=== PATIENT | male | born 1955 ===

== ENCOUNTER 2024-10-06 15:43 | Inpatient (IN) | payer OTHER, SELFPAY ==
[2024-10-06] VITALS (15 sets, daily range): BP systolic 113–151; BP diastolic 68–102; BMI 27.4
--- NOTE | 2024-10-06 10:29 | W.PN.CARDCBS ---
Today's Communication / Plan
-
[facility] today
echo in AM
Impression / Plan
-
This is the H&P summary.
Full H&P scanned into chart.
PCP: David Amato DO
CDY: Seen by Amadou Brady, at [facility]/will follow at [facility] at d/c
68 y/o, PMH sig HTN (no meds with possible white coat HTN), statin intolerant HLD, uncontrolled DM with last HgbA1C 11.7% in July, non smoker, social ETOH. Pt does not like taking meds and has been non compliant in the past.
Presented to [facility] ER 10/04 with 2 weeks intermittent exertional substernal chest discomfort, tightness without radiation, now waking him at night with longer duration. All episodes resolved on their own after a few minutes. CTA chest neg for
PE/AA/dissection but incidental finding of small atherosclerotic ulcer in R OLIVIA. HS Troponin peak 310. BP on arrival 200/100s on arrival, now improved to 130s/70s with SL NTG. Started on aspirin, currently chest pain free. Transferred for [facility] today.
IMPRESSION:
NSTEMI
Hypertensive urgency
HTN, possible white coat HTN
Statin intolerant HLD
Uncontrolled DM
Medication non compliant
R OLIVIA atherosclerotic ulcer (on CT 10/04/24)
PLAN:
NSTEMI-
this is a threat to life
transferred for [facility] today
HS trop peak at 310
started on aspirin 81- unclear if he got load- will give additional 243mg now
BB held d/t some low HR 50s but mostly nocturnal
would start low dose BB, acei- monitor HR/BP
echo in AM
cardiac rehab consult
pt prefers followup at [facility] at d/c
Hypertensive urgency/HTN
200/100s on arrival- ranging now betwwwn
possible white coat HTN
PCP aware and managing as OP
would start acei- creat stable
monitor trends
HLD- statin intolerant
reports myalgia and joint pains in the past
he was agreeable to trying atorvastatin 40 at [facility]- will monitor symptoms
check lipid profile in AM
Uncontrolled DM
only taking glipizide
recent HgbA1C 11.7 in July 2024
repeat and consider DM PANTOGRAPH WATCHER consult/education
likely will need to adjust oral meds/insulin therapy
Progress Note - Bottom Painter
Subjective
Date of Service: October 06, 2024
[2024-10-06 15:28] LABS: ACT-LR - POC 242 Seconds (116-155)
[2024-10-06 15:38] LABS: ACT-LR - POC 324 Seconds (116-155)
--- NOTE | 2024-10-06 15:48 | ITS.CL.ANGIO ---
Telecommunications Linesworker - Angioplasty
Angioplasty
Procedure Report:
LEFT HEART CATHETERIZATION
Date of Procedure: October 06, 2024
Procedures performed:
1: Coronary angiography
2: Left ventriculography
3: Percutaneous coronary intervention of the left circumflex artery with placement of a 2.75 x 18 mm [place] drug-eluting stent
Primary Care Physician: Dr. Karen Barrientos
Primary Customs Opener Verifier Packer: Dr. Kar Orr
INDICATION: The patient is a 68-year-old man with a past medical history significant for poorly controlled diabetes who presents with a non-STEMI to [facility] and was transferred for cardiac catheterization. He has been chest
pain-free. EKGs are normal. Echocardiography was not performed.
ACCESS: The patient was prepped and draped in usual sterile fashion. A 6 [place] sheath was placed in the right radial artery using the Seldinger over the wire technique.
HEMODYNAMIC FINDINGS (mmHg):
LV(s/d,EDP): 130/9, 14
Ao(s/d,m): 130/77, 101
ANGIOGRAPHIC FINDINGS:
Single-plane Left Ventriculography in LEVI Projection: Hyperdynamic LV function with no clear regional wall motion abnormality in LEVI. Visually estimated ejection fraction 75%. No significant mitral regurgitation.
Coronary Angiography:
Dominance: Right
Left Main: Normal
Left Anterior Descending: The LAD is a medium caliber vessel that appears normal proximally. There is a long area of mid myocardial bridging. This is followed by a smooth 60% mid to distal stenosis that also may have some element of bridging. The
distal vessel is angiographically normal with normal distal flow.
Ramus intermedius: There is a large caliber ramus intermedius branch which bifurcates into 2 major distal vessels. There is mild diffuse bifurcation disease that is nonobstructive. Distal vessels have normal flow.
Left Circumflex: The left circumflex is a medium caliber vessel that gives rise to 1 major bifurcating OM. There is a hazy mid 90% stenosis with normal distal flow.
Right Coronary: The right coronary artery is a large-caliber dominant vessel that gives rise to a medium caliber posterior descending artery and slightly larger posterior left ventricular branch system. These vessels have mild nonobstructive
luminal irregularities with no focal obstructive disease and normal flow in all distal vessels.
Percutaneous Coronary Intervention (PCI): In light of the above angiographic findings, I elected to proceed with a PCI of the culprit circumflex. The patient was pretreated with aspirin. Unfractionated heparin was given. A 6 [place] XB 3.5 guiding
catheter was used to engage the left main. A Hi-Torque floppy wire was successfully used to cross the lesion. A double bolus of Integrilin was given as the lesion appeared acute and hazy with some amount of thrombus. Predilation was performed
with a 2.0 x 15 mm balloon. Next a 2.75 x 18 mm Tip stent was deployed at 12 malik. The stent was postdilated with a 2.75 mm diameter noncompliant balloon inflated to 18 malik. This was done in a distal to proximal fashion taking care to stay within
the stented margins. A loading dose of clopidogrel 600 mg was given on the table at the end of the procedure.
FINAL RESULT: 0% in-stent residual stenosis with an outstanding angiographic result and FAMILIA-3 flow in all vessels.
Fluoroscopy Time (min): 8.9
Radiation Dose (mGy): 776
DAP (Gy.cm2): 61
Closure device: None. A TR band was applied for hemostasis at the right wrist.
Complications: None.
ASSESSMENT:
1: Successful PCI of the culprit circumflex with placement of drug-eluting stent as described above.
2: Residual single-vessel coronary artery disease with mid to distal LAD stenosis as described above. I suspect this is not flow-limiting and we will plan to follow clinically on medical therapy. Consider stress testing in the future to
definitively rule out LAD territory ischemia in this poorly controlled diabetic.
3: Preserved LV systolic function with no significant mitral regurgitation.
CONCLUSIONS and RECOMMENDATIONS:
1: Routine post non-STEMI and post drug-eluting stent medical therapy and monitoring. The patient needs dual antiplatelet therapy with aspirin and Plavix uninterrupted for a year and aspirin 81 mg daily indefinitely.
2: Consult hospitalist for aggressive control of diabetes. Hemoglobin A1c was over 10 on admission. Will discuss with the patient's primary care physician.
Carlos Orr M.D.
Copy to: Dr. Karen Barrientos
[2024-10-06] MEDS: LOW STRENGTH ASPIRIN 243 MG PO (16:37)
[2024-10-06 17:01] LABS: Glucose - Point of Care 145 mg/dl (70-99)
[2024-10-06] MEDS: NOVOLOG FLEXPEN-MODERATE RESISTANCE SC (17:06)
[2024-10-06] MEDS: COZAAR 50 MG PO (17:14)
[2024-10-06] MEDS: LIPITOR 80 MG PO (17:15)
[2024-10-06 22:11] LABS: Glucose - Point of Care 210 mg/dl (70-99)
--- NOTE | 2024-10-06 23:18 | PTCARENOTE ---
Received pt @ change of shift. AAOx3, VSS-- NSR on monitor. R-band successfully removed-- see worklist for details. Right radial site clean, dry, and intact. No swelling, ecchymosis, and is soft to touch. Discussed plan of care for evening. Pt
verbalizes understanding. Call meléndez within reach.
[2024-10-07 02:04] VITALS: BP 129/69
[2024-10-07 02:40] LABS: Hematocrit 39.8 % (39.0-52.0); Hemoglobin 13.8 g/dL (13.0-18.0); Mean Corp Hgb Conc. 34.7 g/dL (33.0-37.0); Mean Corpuscular Hgb 30.3 pg (27.0-31.0); Mean Corpuscular Volume 87.3 fL (80.0-94.0); Mean Platelet Volume 9.2 fL (7.4-10.4); Platelet Count 245 10^3/uL (130-400); Red Blood Cell Count 4.56 10^6/uL (4.70-6.10); Red Cell Dist. Width 12.4 % (11.5-14.5); White Blood Cell Count 6.1 10^3/uL (4.8-10.8)
[2024-10-07 03:12] LABS: Blood Urea Nitrogen 20 mg/dl (9-20); Calcium 9.1 mg/dl (8.4-10.2); Carbon Dioxide 25 mmol/L (22-30); Chloride 107 mmol/L (98-107); Estimated Creatinine Clearance 72 ml/min; Glucose 184 mg/dl (70-99); HDL Cholesterol 34 mg/dl; LDL Cholesterol, Calculated 93 mg/dl; Potassium 4.4 mmol/L (3.5-5.1); Sodium 138 mmol/L (135-145); Total Cholesterol 149 mg/dl (50-199); Triglyceride 112 mg/dl (10-149); Very Low Density Lipoprotein 22 mg/dl (0-30); eGFR > 60.00
[2024-10-07 07:34] VITALS: BP 151/68
--- NOTE | 2024-10-07 07:39 | PN.DE.MGMTRT ---
Insulin Management
- -
10/07/2024 Diabetes Management Consult
Patient transferred from [facility] 10/05. Presented to [facility] with CP/tightness without radiation and uncontrolled HTN. PMH, HTN, HLD, diabetes. Prior to admission was taking glipizide 10 mg daily. A1C on admission 11.7%, cr .9, eGFR > 60.
s/p Cardiac Cath 10/06 with stent.
Patient is awake alert and oriented able to discuss diabetes care. States he has had diabetes approximately 10+ years, did not test consistently but has a working glucose monitor.
Currently ordered corrective insulin. Glucose range 145 to 210. Will start Farxiga 10 mg now and increase glipizide to 10 mg BID. Discussed importance of glucose control, patient states he loves pasta and bread. Recommended he reduce serving
sizes. Explained the action and benefit of Farxiga and when it should be taken. Also discussed need to increase glipizide to BID, he verbalized understanding. Requested he test glucose BID in pattern provided and call me to report blood
sugars, he has agreed to do so. Recommended he make an appointment with his primary provider for follow up. He states he leaves for a cruise on but will make the appointment.
Discussed with nurse.
Will follow
Diabetes History
- -
Type of Diabetes: 2
Pre-Admission Diabetes Regimen
10/07/24
02:15
Creatinine 0.9
Insulin Pump Settings
IP Diabetes Regimen
10/06/24 10/06/24 10/07/24
16:59 22:10 02:15
Glucose 184 H
POC Glucose 145 H 210 H
Patient Education
[2024-10-07 07:44] LABS: Glucose - Point of Care 175 mg/dl (70-99)
[2024-10-07] MEDS: GLUCOTROL 10 MG PO (07:57)
[2024-10-07] MEDS: FARXIGA 10 MG PO (07:57)
[2024-10-07] MEDS: PLAVIX 75 MG PO (07:57)
[2024-10-07] MEDS: COZAAR 50 MG PO (07:58)
[2024-10-07] MEDS: LOW STRENGTH ASPIRIN 81 MG PO (07:58)
[2024-10-07] MEDS: NOVOLOG FLEXPEN-MODERATE RESISTANCE 1 UNITS SC (08:21)
--- NOTE | 2024-10-07 08:58 | W.PN.CARDCBS ---
Addendum entered and electronically signed by Akil Downey MD 10/07/24 11:01:
I saw and examined the patient.
The Senior Energy Trader's note was reviewed and I agree with the note.
Comment:
GEN: No distress, awake, Ox3
HEENT: supple, anicteric, mmm
LUNGS: CTA, no wheezes/rales
CV: Reg, S1/S2, 1/6 syst LSB, no gallop
ABD: soft, BS+, NT/ND
EXT: No edema
NEURO: Gross non-focal
SKIN: No rash
Plan:
Overall doing well status post left circumflex PCI. He does have residual 60% LAD. We discussed this.
Check echocardiogram today.
Continue aspirin, Plavix, Atorvastatin 80 mg, losartan and Farxiga.,
Holding off on beta-marta due to bradycardia.
Hopeful for discharge today.
We discussed the importance of sugar control he will be seeing the nurse practitioner today to further discuss this. Hemoglobin A1c above 10
Original Note:
Today's Communication / Plan
-
Echo today
DM BANK CONSULTANT consult
likely d/c later today
Impression / Plan
-
PCP: David Amato DO
CDY: Seen by Amadou Brady DO at [facility]/will follow [facility] at d/c
68 y/o, PMH sig HTN (no meds with possible white coat HTN), statin intolerant HLD, uncontrolled DM with last HgbA1C 11.7% in July, non smoker, social ETOH. Pt does not like taking meds and has been non compliant in the past.
Presented to [facility] ER 10/04 with 2 weeks intermittent exertional substernal chest discomfort, tightness without radiation, now waking him at night with longer duration. All episodes resolved on their own after a few minutes. CTA chest neg for
PE/AA/dissection but incidental finding of small atherosclerotic ulcer in R OLIVIA. HS Troponin peak 310. BP on arrival 200/100s on arrival, now improved to 130s/70s with SL NTG. Started on aspirin, currently chest pain free.
LHC 6/2- hazy mid 90% LCx- s/p angioplasty/YONG x1
LVGram- Hyperdynamic LV function, EF 75%, no clear WMA, no sig MR
IMPRESSION:
NSTEMI
s/p LCx PCI
Residual CAD- 60% mid-distal LAD, medical management
Hypertensive urgency
HTN, possible white coat HTN
Statin intolerant HLD
Uncontrolled DM
Medication non compliant
R OLIVIA atherosclerotic ulcer (on CT 10/04/24)
PLAN:
NSTEMI-
this is a threat to life
s/p LCx PCI w/LAD residual CAD
HS trop peak at 310
Tele- NSR 60-70s, no vt/arrhythmia
DAPT w/asa, plavix
Holding off on BB d/t some bradycardia, preserved EF on LVGram
prob could tolerate low dose metoprolol-
new start losartan 50mg w/good BP reduction
would keep all meds to daily dosing to help with compliance
echo today
cardiac rehab consult
pt prefers followup at [facility] at d/c
likely d/c later today after consulte/echo
Hypertensive urgency/HTN
200/100s on arrival
possible white coat HTN?
PCP aware and managing as OP
tolerating losartan 50mg with good BP reduction noted already
HLD- statin intolerant
reports myalgia and joint pains in the past
he was agreeable to trying atorvastatin 40 at [facility]- will monitor symptoms
lipid profile noted
Uncontrolled DM
only taking glipizide
recent HgbA1C 11.7 in July 2024- pending this morning
DM BANK CONSULTANT consult/education this morning
likely will need to adjust oral meds/insulin therapy
Progress Note - Physical Education Department Chair
Subjective
Date of Service: October 07, 2024
Denies cp/palps/dyspnea
oob ambualting
radial cath site without pain
Objective
Labs:
10/07/24 02:15
10/07/24 02:15
Labs
Hgb 13.8 g/dL (13.0-18.0) 10/07/24 02:15
Hct 39.8 % (39.0-52.0) 10/07/24 02:15
Plt Count 245 10^3/uL (130-400) 10/07/24 02:15
Sodium 138 mmol/L (135-145) 10/07/24 02:15
Potassium 4.4 mmol/L (3.5-5.1) 10/07/24 02:15
BUN 20 mg/dl (9-20) 10/07/24 02:15
Creatinine 0.9 mg/dL (0.7-1.3) 10/07/24 02:15
Glucose 184 mg/dl (70-99) H 10/07/24 02:15
Vital Signs and I&O:
Vital Signs
Temp Pulse Resp BP Pulse Ox
98 F 71 18 151/68 97
10/07/24 07:35 10/07/24 07:34 10/07/24 07:35 10/07/24 07:34 10/07/24 07:35
Vital Signs
Temp Pulse Resp BP Pulse Ox
98 F 71 18 151/68 97
10/07/24 07:35 10/07/24 07:34 10/07/24 07:35 10/07/24 07:34 10/07/24 07:35
Physical Exam
Physical Exam
AAOx3, MAEE 5
RRR S1 S2 no murmurs
CTA bilat, non labored
soft abd, + bs
right radial cath site without ht/bleeding, non tender
bilat extremities w/palpable distal pulses, no edema
[2024-10-07 09:27] LABS: Glycohemoglobin (HgbA1c) 10.1 % (4.0-5.6)
--- NOTE | 2024-10-07 10:23 | CM ---
Addendum entered by Mary Romero 10/07/24 10:49:
Reviewed co-pay for Farxiga with him. He is agreeable to the co-pay.
Original Note:
Reviewed chart. Met with Joana Marinelli to review discharge plans. He states prior to admission he resides with his spouse in a two story home with two steps to enter. He states he has a full flight of steps to get to bedroom/full bathroom. He states
he has a powder room on the first floor. He states prior to admission he was independent with ambulation and adls. He states he does not have any DME in the home. He states he has a prescription plan. Telephone call to [employer], ([phone]) to
check his co-pay for Farxiga 10 mg p.o. His co-pay would be $132.39 a month or $368.95 for three months. He does not have a deductible, so he will pay that burleson until he gets to his maximum out of pocket of $2000.00 then he would have a zero
co-pay. Placed the month free coupon in his red discharge folder. Medical work up in progress. The discharge plan is to return home with his spouse when medically stable.
[2024-10-07 10:58] VITALS: BP 124/89
[2024-10-07 11:44] LABS: Glucose - Point of Care 134 mg/dl (70-99)
[2024-10-07] MEDS: NOVOLOG FLEXPEN-MODERATE RESISTANCE SC (11:46)
--- NOTE | 2024-10-07 14:20 | PTCARENOTE ---
Pt is very pleasant. No complaints of chest pain or sob. Ambulatory around unit. Given extensive teaching on ACS and diabetes management. Is concerned about diet restrictions but is motivated to try. Will go home today when discharge orders in.
[2024-10-07 15:16] VITALS: BP 134/64
--- NOTE | 2024-10-07 15:40 | W.DS.TRANS ---
DC Summary - Director Global Intelligence
-
Discharge Instructions:
Discharge Diagnosis/Procedures NSTEMI, s/p angioplasty and stent to Left
Circumflex artery
Diet Low Cholesterol,Diabetic, Carb Controlled
Additional Activity DO NOT MOW THE LAWN!!!!! Wait until after
vacation.
Driving Restrictions No driving for 24 hours
Other Services Cardiac Rehab
Instructions:
Stand-Alone Forms: DC Instructions- Cath/EP Lab
Return to Work
Changes to Home Medications: Yes
Discharge Medications:
DC Medications w/original date entered in [facility]
aspirin 81 mg chewable tablet 81 mg PO DAILY #0 tabs 10/07/24
atorvastatin 80 mg tablet 80 mg PO QPM #30 tabs 10/07/24
clopidogrel 75 mg tablet 75 mg PO DAILY #30 tabs 10/07/24
dapagliflozin propanediol 10 mg tablet 10 mg PO DAILY #30 tabs 10/07/24
glipizide 10 mg tablet 10 mg PO BID #60 tabs 10/07/24
losartan 50 mg tablet 50 mg PO DAILY #30 tabs 10/07/24
nitroglycerin 0.4 mg sublingual tablet 0.4 mg sublingual [id number] PRN chest pain #25 tabs 10/07/24
Home Medication Changes
ALL ARE NEW
DOSE INCREASE: glipizide
Pending Results: No
== END 2024-10-07 15:21 | disposition home or self-care (01) | DRG 322 ==
LOC: IVU 15:43
PROVIDERS: Nurse Practitioner; ADMITTING PHYSICIAN Internal Medicine Interventional Cardiology; ATTENDING PHYSICIAN Internal Medicine Interventional Cardiology; FAMILY PHYSICIAN Family Medicine
PROC: B2111ZZ Fluoroscopy of Multiple Coronary Arteries using Low Osmolar Contrast (ICD-10-PCS; 2024-10-06)
PROC: 4A023N7 Measurement of Cardiac Sampling and Pressure, Left Heart, Percutaneous Approach (ICD-10-PCS; 2024-10-06)
PROC: 027034Z Dilation of Coronary Artery, One Artery with Drug-eluting Intraluminal Device, Percutaneous Approach (ICD-10-PCS; 2024-10-06)
DX: I21.4 Non-ST elevation (NSTEMI) myocardial infarction (principal); I25.10 Atherosclerotic heart disease of native coronary artery without angina pectoris; I10 Essential (primary) hypertension; E78.5 Hyperlipidemia, unspecified; E11.65 Type 2 diabetes mellitus with hyperglycemia; I16.0 Hypertensive urgency; I70.8 Atherosclerosis of other arteries; Z91.148 Patient's other noncompliance with medication regimen for other reason
CPT/HCPCS: 80048; 80061; 82962; 83036; 85027; 85347; 93005; 93306; 93458; C1725; C1769; C1874; C1887; C1894; C9600; J1327; Q9967

== ENCOUNTER 2025-03-29 15:27 | Inpatient (IN) | payer OTHER, SELFPAY ==
[2025-03-29] VITALS (9 sets, daily range): BP systolic 117–154; BP diastolic 62–80; BMI 26.7
[2025-03-29] MEDS: NITROSTAT (SUBLINGUAL) 0.4 MG SL (11:55)
[2025-03-29 12:00] LABS: Hematocrit 44.6 % (39.0-52.0); Hemoglobin 14.9 g/dL (13.0-18.0); Mean Corp Hgb Conc. 33.4 g/dL (33.0-37.0); Mean Corpuscular Volume 89.0 fL (80.0-94.0); Nucleated Red Blood Cells % 0 % (-); Platelet Count 216 10^3/uL (130-400); Red Cell Dist. Width 13.0 % (11.5-14.5)
[2025-03-29 12:20] LABS: ALT (SGPT) 22 U/L (0-50); AST (SGOT) 22 U/L (17-59); Albumin 4.5 g/dl (3.5-5.0); Alkaline Phosphatase 57 U/L (38-126); Blood Urea Nitrogen 27 mg/dl (9-20); Calcium 9.2 mg/dl (8.4-10.2); Carbon Dioxide 27 mmol/L (22-30); Chloride 104 mmol/L (98-107); Glucose 266 mg/dl (70-99); Potassium 4.0 mmol/L (3.5-5.1); Sodium 139 mmol/L (135-145); Total Protein 7.6 g/dl (6.3-8.2); eGFR > 60.00
[2025-03-29 12:33] LABS: Troponin I 0.016 ng/ml
--- NOTE | 2025-03-29 14:10 | EDRN ---
Pt OOB to BR at this time.
--- NOTE | 2025-03-29 14:19 | ED.GENMED ---
History of Present Illness
General
Chief Complaint: Chest Pain
Source: patient
Time Seen by Provider: 03/29/25 11:39
History of Present Illness
History of Present Illness:
Note:
CHIEF COMPLAINT(S)
Chest pressure
HISTORY OF PRESENT ILLNESS
The patient is a 69-year-old male with a history of coronary artery disease and recent stent placement six months ago. He presents with chest pressure that began last night while lying down. The patient described the sensation as pressure rather
than pain. On a severity scale, the discomfort is 4 out of 10. The patient took two doses of nitroglycerin this morning, which did not significantly alleviate the symptoms. He reports that the chest pressure is somewhat improved compared to the
previous night but still present. The patient has a history of a similar episode before his stent placement, which occurred on a Sunday night, causing him to wake up feeling as if there was 'an elephant in my chest.' During that incident, he was
hospitalized and subsequently had a stent placed. He denies experiencing fever, cough, diaphoresis, dizziness, or changes in limb condition at present.
PAST MEDICAL AND SURGICAL HISTORY
Stent placement six months ago for coronary artery disease.
Diabetes
SOCIAL HISTORY
The patient quit smoking 50 years ago and does not currently smoke.
MEDICATIONS
Aspirin, Atorvastatin (Lipitor), Clopidogrel (Plavix), Dapagliflozin (Farxiga), Ezetimibe (Zetia), Glipizide (Glucotrol), Losartan (Cozaar).
REVIEW OF SYSTEMS
- Cardiovascular: Chest pressure, history of stent placement.
- Neurological: Denies dizziness or confusion.
- Respiratory: Denies cough or respiratory distress.
- General: Denies fever or sweats.
PHYSICAL EXAM
General: Alert, no acute distress.
Skin: Warm, dry.
Head: Normocephalic, atraumatic.
Neck: Supple, trachea midline.
Eyes, Ears, Nose, Mouth, and Throat: Oral mucosa moist.
Cardiovascular: Heart rate regular without murmur, normal peripheral perfusion, no edema.
Respiratory: Respirations are non-labored, lungs clear.
Gastrointestinal: Abdomen nondistended.
Back: Normal range of motion, normal alignment.
Musculoskeletal: Normal range of motion, normal strength.
Neurological: Alert and oriented to person, place, time, and situation, no focal neurological deficit observed.
Psychiatric: Cooperative, appropriate mood and affect.
PLAN
The plan is to obtain cardiac enzymes and monitor response to nitroglycerin administration while in the emergency department. Additionally, review external records, specifically the patients previous EKG and cardiac history. Contact cardiology
partners to develop a treatment plan if symptoms persist.
DIFFERENTIAL DIAGNOSIS
The Differential Diagnosis includes, in no particular order and is not limited to:
1. Acute Coronary Syndrome
2. Angina Pectoris
3. Gastroesophageal Reflux Disease (GERD)
4. Musculoskeletal Chest Pain
5. Aortic Dissection
6. Pulmonary Embolism
7. Pericarditis
8. Costochondritis
9. Heart Failure
10. Myocarditis
EKG
My independent EKG interpretation is:
- Rhythm: Sinus bradycardia
- Heart Rate: 58 bpm
- [place]: Normal
- Intervals: Normal
- Abnormalities: No acute ischemic changes
Disposition:
SUMMARY OF ENCOUNTER
The patient is a 69-year-old male with a history of coronary artery disease and previous stent placement in the circumflex artery six months ago, who presents to the emergency department with chest pressure. The symptoms began last night while the
patient was lying down and have been intermittent, described as pressure rather than pain. He took two doses of nitroglycerin with no significant relief. Previous similar symptoms led to hospitalization and stent placement. Troponin levels are
within normal range at 0.016 ng/mL, CBC is normal, and he has hyperglycemia with a blood glucose level of 266 mg/dL. Given the patients history and symptomatology, management was discussed with shoe shiner Dr. Garcia. The decision was made to
initiate IV heparin and topical nitroglycerin. As the patient is currently pain-free, he will be admitted for further evaluation by cardiology.
DISPOSITION
Admit
ASSESSMENT
The patient presents with intermittent chest discomfort and has a history of coronary artery disease. Differential diagnoses include Acute Coronary Syndrome or Angina Pectoris.
EMERGENCY TREATMENTS ADMINISTERED
IV heparin and topical nitroglycerin.
MANAGEMENT OF THE PATIENTS CARE WAS DISCUSSED WITH
Calculus Tutor Dr. Garcia.
PLAN
Admit the patient under cardiology service for further evaluation and management of potential acute coronary syndrome.
INDEPENDENT REVIEW OF LABS AND INTERPRETATION OF TESTS
My independent review of Troponin is 0.016 ng/mL, indicating no acute ischemic changes.
My independent review of CBC is normal.
My independent review of Chemistry indicates hyperglycemia with blood glucose at 266 mg/dL.
MEDICAL DECISION MAKING
1. Number and Complexity of Problems Addressed: Chronic conditions affecting care include coronary artery disease with recent stent placement. Differential Diagnosis includes:
- Acute Coronary Syndrome
- Angina Pectoris
- Gastroesophageal Reflux Disease (GERD)
- Musculoskeletal Chest Pain
- Aortic Dissection
- Pulmonary Embolism
- Pericarditis
- Costochondritis
- Heart Failure
- Myocarditis
2. Data:
- Category 1: Review of previous cardiac catheterization from October, indicating circumflex stent and residual LAD disease. Troponin and CBC reviewed.
- Category 3: Case discussed with Calculus Tutor Dr. Garcia for decision-making regarding management and admission.
3. Risk: Given the patients significant history of coronary artery disease and the presentation of symptoms, the decision to admit for further evaluation was made to rule out acute coronary syndrome.
DIAGNOSIS
- R07.9 Chest pain, unspecified
- Z95.5 Presence of coronary angioplasty implant and graft
Phy Exam
Physical Exam
Physical Exam:
.
Scores
Heart Score for Chest Pain Patients
STEMI patient?: No
History: Moderately Suspicious
ECG: Nonspecific Repolarization
Age: >/= 65 years
Risk Factors: >/= 3 Risk Factors or History of CAD
Troponin: >1 - <3 x Normal Limit
Heart Score for Chest Pain Patients: 7
Heart Score Risk: 72.7 % MACE over next 6 weeks
Course
Orders/Labs/Results
Orders:
Orders
03/29/25 10:56
Electrocardiogram (*1) Urgent
Reason for Study: Chest Pain
EKG- Treatment ONCE
03/29/25 11:40
Cardiac Monitoring- Treatment ONCE
CR Chest - 2 Views Urgent
Comment:
Reason For Exam: cp
03/29/25 11:52
Complete Blood Count/With Diff Urgent
Comprehensive Metabolic Panel Urgent
Troponin I Urgent
03/29/25 11:54
Nitroglycerin Sublingual [Nitrostat (Sublingual)] 0.4 mg .ROUTE .STK-MED ONE
03/29/25 11:55
Nitroglycerin Sublingual [Nitrostat (Sublingual)] 0.4 mg SL NOW STA
03/29/25 14:21
Nitroglycerin Ointment [Nitro-Bid] 1 inch TOPICAL NOW STA
03/29/25 14:[address] Non Medication Order As Directed
Physician Order: PTT 6 hours after initial start of Heparin infusion
Above order entered?: Yes
03/29/25 14:34
Heparin 4,000 units IV NOW STA
03/29/25 14:35
PTT Urgent
Comment: Obtain baseline before beginning heparin infusion if not already collected
03/29/25 14:45
Heparin 95058 Units/250 ml 25,000 units in 250 ml IV PER PROTOCOL
Weight to be used for heparin protocol in kilograms (kg):: 80.4
Protocol:: Cardiac Tx/Acute Coronary
PTT Goal Range to be used:: PTT 73 to 111 seconds
Order type:: Initial
INITIAL Infusion Dose (UNITS/KG/hr) & then follow protocol:: 12 units/kg/hr
Infusion Dose in UNITS/hr & then follow protocol (UNITS/hr):: 950
INFUSION RATE in mL/hr & then follow protocol (mL/hr):: 9.5
PTT less than or equal to 64 seconds:: Increase rate by 200 units/hr (+ 2 mL/hr)
PTT 64.1 to 72.9 seconds:: Increase rate by 100 units/hr (+ 1 mL/hr)
PTT 73 to 111 seconds:: Target Range. No change in rate.
PTT 111.1 to 130.9 seconds:: Decrease rate by 100 units/hr (- 1 mL/hr)
PTT 131 to 199.9 seconds:: HOLD for 1 hr. Then decrease rate by 200 units/hr (- 2 mL/hr)
PTT greater than or equal to 200 seconds:: HOLD for 2 hrs & Notify Provider. Then decrease by 200 units/hr (-
2 mL/hr)
Lab follow-up:: Each change, PTT q6h until 2 consecutive are therapeutic. Then PTT
daily.
03/29/25 14:56
Admit/Transfer Patient As Directed
Co-Sign Provider:
Level of Care: Inpatient admission
Assign to:: Telemetry
Physician / Group: Hospitalist
Diagnosis: Chest pain
Reason for Telemetry: Chest Pain syndromes
Date to Stop Telemetry: 03/31/25
Time to Stop Telemetry: 11:00
Reason for Hospitalization: Chest pain
Expected length of stay greater than two midnights?: Yes
ELOS- Estimated Length of Stay in days: 3
I certify the patient meets the requirements for IP care: Yes
03/29/25 14:57
PRN Pain Medication Management As Directed
May give lesser potent ordered pain med per pt: Yes
preference::
Protocol:: Medication orders for pain may be administered in a
manner that supports deferring to patient preference
when the pt is:
- Requesting an ordered lesser potent pain medication.
Least to most potent pain medications are defined
as: acetaminophen < NSAID < tramadol < opioids
(morphine, oxycodone, hydromorphone).
- Requesting a lesser dose of the same medication IF
ORDERED.
- Requesting a less intrusive route of administration
if both routes are prescribed by the provider (PO <
IV).
03/29/25 14:59
Code Status As Directed
Resuscitation Status: Full Code
03/29/25 21:00
PTT Urgent
Comment: Obtain baseline before beginning heparin infusion if not already collected
03/31/25 11:00
DC Protocol for Telemetry ONCE
Abnormal Lab Results
03/29/25
11:52
BUN 27 H mg/dl
(9-20)
Glucose 266 H mg/dl
(70-99)
03/29/25 11:52
03/29/25 11:52
Vital Signs
Initial and Last Documented VS:
Initial Vital Signs
Temp Pulse Resp BP Pulse Ox
98 F 62 16 154/68 97
03/29/25 11:04 03/29/25 11:04 03/29/25 11:04 03/29/25 11:04 03/29/25 11:04
Last Documented Vital Signs
Temp Pulse Resp BP Pulse Ox
98 F 62 17 141/78 97
03/29/25 11:04 03/29/25 15:00 03/29/25 15:00 03/29/25 15:00 03/29/25 15:00
*Pulse Oximetry
SaO2: 96
Oxygen Mode of Delivery: Room air
Patient hypoxic: no
*Critical Care Note
Total Time (30-74mins, 75-104mins- exclusive of procedures): 30 minutes
ED Attending Note
-
Portions of this chart may have been created with voice recognition software.� Occasional wrong word or��sound alike� substitutions may have occurred due to the inherent limitations of voice recognition software.
Discharge Plan
Departure
Patient Disposition: Admit
Date of Disposition: 03/29/25
Time of Disposition: 14:25
Admit to: IVU
Presentation/result/management discussed w/ accepting MD/DO: Hospitalist
Discharge Problem:
Unstable angina, Acute hyperglycemia
Interventions
Interventions:
*Risk Screen - Suicide Last Done: 03/29/25 11:05
*General Assessment Last Done: 03/29/25 11:44
*Neglect/Abuse Screening Last Done: 03/29/25 11:05
*ED- Fall Risk Assessment Last Done: 03/29/25 11:44
*ED COVID-19 Vaccine History Last Done: 03/29/25 11:44
*ED Influenza Vaccine History Last Done: 03/29/25 11:44
ED- Cardiac Assessment Last Done: 03/29/25 11:59
--- NOTE | 2025-03-29 14:30 | EDRN ---
Pharmacy called to verify heparin order at this time.
[2025-03-29] MEDS: NITRO-BID 1 INCH TOPICAL (14:44)
--- NOTE | 2025-03-29 14:44 | EDRN ---
HOspitalist Dr. Gomez in room w/ pt
[2025-03-29 14:53] LABS: APTT 26.9 Sec (23.4-35.0)
[2025-03-29] MEDS: HEPARIN 4000 UNITS IV (14:55)
[2025-03-29] MEDS: HEPARIN 25000 UNITS/250 ML IV (14:56)
--- NOTE | 2025-03-29 15:00 | W.PN.UPDATE ---
Update Note
Progress Note Update
This note serves as an addendum to the H&P by PGY3
�
HPI
69M HX CAD with recent stent on DAPL , HLD on statin placement six months ago
- seen at ER for chest pressure that began last night while lying down - described the sensation as pressure rather than pain
- the discomfort 4 out of 10 - took two doses of NTG this morning, which did not significantly alleviate the symptoms.
- HX similar episode before his stent placement, which occurred on a last Sunday night wake up feeling as if there was 'an elephant in my chest.'
During that incident, he was hospitalized over the weekend and subsequently had a stent placed.
Relevant VS
Vital Signs
Temp Pulse Resp BP Pulse Ox
98 F 62 17 141/78 97
03/29/25 11:04 03/29/25 15:00 03/29/25 15:00 03/29/25 15:00 03/29/25 15:00
PE
Gen: NAD
HEENT: anicteric
Neck: supple
Lungs: CTA
Cor: RRR S1 S2
Abdomen:�soft NT NG
PAROLE OR PROBATION OFFICER: AAO3 , NFND
MS: no edema
Psych: Nl mood and affect
Relevant Data
03/29/25
11:52
WBC 4.9
Hgb 14.9
Plt Count 216
BUN 27 H
Creatinine 0.9
Troponin I 0.016
EKG
SINUS BRADYCARDIA
OTHERWISE NORMAL ECG
WHEN COMPARED WITH ECG OF 07-Oct-2024 02:07,
NO SIGNIFICANT CHANGE WAS FOUND
No prior hospitalist admission:
ASSESSMENT & PLAN
Chest pressure- relieved by SL NTG x 1
Presumed ACS r/o NSTEMI
Recent CAD with stent at Lt circ at [facility]
- Trend TPNI
- Heparin gtt
- NT paste
- hold ASA
- keep on Plavix
- c/w Statin
- NPO after MN for cardiac cath in AM per Card
- DCA card consult
DMT2
- Hold Glipizide and Dapagliflozin
- add ISS low
HLD
- c/w [employer] EXAMINER Atorvastatin
DVT Px: on Heparin gtt
Full code
IVU
--- NOTE | 2025-03-29 15:07 | HPS.HSE ---
Family Physician
-
Family Physician: Vivien Hill
Chief Complaint
-
Chest pain
History of Present Illness
69-year-old male with recent stent placed in left circumflex artery 6 months ago presenting today with intermittent chest pain. Patient describes the pain as intermittent, sharp started overnight. This morning patient woke up and he he did
experience the same chest pain and he took nitroglycerin 2 tablets. He called his director of exhibit development and they advised him to go to the ED. He denies any shortness of breath palpitation any recent falls, fever/chills, urinary symptoms or abdominal issues.
In the ED he was given nitro patch, started on heparin. Patient is currently asymptomatic. Troponin levels are normal at 0.016. EKG shows sinus bradycardia.
Medical History
Past Medical History
Past Medical History: Reports Other (Stent placement six months ago for coronary artery disease.)
Past Surgical History: Reports Other
Social History
Tobacco: Former Smoker
Alcohol: Daily (1 glass of wine)
Drug: None
Personal:
Living: With Family
Employment: Retired
Family History
Family History: Not pertinent
Allergies / Home Medications
Allergies reflects when Allergies were last updated in [email or web address].
Home Medications with original date entered in [email or web address]
Allergy/Medication List:
Allergies
Allergy/AdvReac Type Severity Reaction Status Date / Time
No Known Allergies Allergy Unverified 10/06/24 15:07
Home Medications
aspirin 81 mg chewable tablet 81 mg PO DAILY #0 tabs 10/07/24
atorvastatin 80 mg tablet 80 mg PO QPM High Cholesterol 03/29/25
clopidogrel 75 mg tablet 75 mg PO DAILY Blood Clot Prevention/Tx 03/29/25
dapagliflozin propanediol 10 mg tablet 10 mg PO DAILY Diabetes 03/29/25
glipizide 10 mg tablet 10 mg PO BID Diabetes 03/29/25
losartan 50 mg tablet 50 mg PO DAILY Heart Disease/Condition 03/29/25
sildenafil 100 mg tablet 100 mg PO DAILYPRN PRN ed 03/29/25
Review of Systems
-
History Source: Patient
A 12 point ROS was completed and negative except as noted: Yes
Physical Exam
Vital Signs
Vital Signs
Temp Pulse Resp BP Pulse Ox
98 F 62 17 141/78 97
03/29/25 11:04 03/29/25 15:00 03/29/25 15:00 03/29/25 15:00 03/29/25 15:00
Physical Exam
General: Comfortable and Conversant
HEENT: NormoCephalic and Anicteric
Respiratory: Clear
Cardiac: S1/S2 and Regular Rhythm
GI: Soft, Non Tender and Non Distended
Musculoskeletal: No Clubbing, No Cyanosis and No Edema
Skin: Warm and Dry
Neuro: AO x 3
Hematologic/Lymphatic: No Lymphadenopathy
Psych: Calm
Laboratory Results
-
03/29/25 11:52
03/29/25 11:52
Laboratory Results
Total Bilirubin 0.4 mg/dl (0.2-1.3) 03/29/25 11:52
AST 22 U/L (17-59) 03/29/25 11:52
ALT 22 U/L (0-50) 03/29/25 11:52
Alkaline Phosphatase 57 U/L (38-126) 03/29/25 11:52
Troponin I 0.016 ng/ml 03/29/25 11:52
Data Reviewed
-
Medical Tests (Nuc Med, Echo, EKG etc): Image Personally Visualized and interpreted, Report Reviewed by me and Discussed with Physician
Lab Data: Labs Reviewed by me and Discussed with Physician
Impression/Plan
-
IMPRESSION:
Acute coronary syndrome
Type 2 diabetes mellitus
History of ED
Hyperlipidemia
PLAN:
Acute coronary syndrome
Questionable for NSTEMI vs stable angina
Nitro x 2 tablets at home without resolution of symptoms
Nitroglycerine x 1 in ED
Currently asymptomatic
Spoke with director of exhibit development, continue Plavix and aspirin
Possible cath tomorrow
Food Chemist aware
NPO after midnight
IV heparin
Type 2 diabetes mellitus
Hold glipizide hold dapagliflozin
Sliding scale
History of erectile dysfunction
Hold sildenafil
Hyperlipidemia
Continue atorvastatin
Full code
Heparin
Diabetic diet.
NPO after midnight
--- NOTE | 2025-03-29 15:36 | EDRN ---
Pt admitted for chest pain and next troponin ordered for tomorrow am not usual q6hr x3 as is standard order for chest pain pts.
--- NOTE | 2025-03-29 16:20 | EDRN ---
Just saw message TT from Dr. Gomez that no need for serial troponins just next troponin in am at this time. return message from Dr. Gomez written at 13:37.
--- NOTE | 2025-03-29 16:47 | EDRN ---
Pt requested water and asked about eating. Pt informed he is going to [facility] soon and can order on arrival to floor. Pt administered a cup of water at this time.
[2025-03-29 17:13] LABS: Glucose - Point of Care 81 mg/dl (70-99)
--- NOTE | 2025-03-29 17:51 | PTCARENOTE ---
Received pt from ER via stretcher, accompanied [facility] staff. Pt AAO x3, SEWELL well, ambulatory to bed, no c/o weakness/dizziness. VSS. PLaced on telemetry:NSR. On room air- pulseox 98%, no SOB noted. Abd soft, rounded, to start 2 Gm Na diet. Pt
aware of NPO past midnight 03/30. Pt DTV; states will void in BR. Heparin drip @ 950 units hr (9.5 ml/hr) infusing via Rt AC site without sx of infiltration. Oriented to 4East,currently resting in bed, no c/o. Will continue to monitor.
[2025-03-29] MEDS: LIPITOR PO (17:55)
[2025-03-29 21:34] LABS: APTT 81.3 Sec (23.4-35.0)
[2025-03-29 21:37] LABS: Glucose - Point of Care 234 mg/dl (70-99)
[2025-03-30] VITALS (16 sets, daily range): BP systolic 105–140; BP diastolic 63–75; BMI 26.7
[2025-03-30 03:16] LABS: APTT 79.5 Sec (23.4-35.0)
[2025-03-30 06:33] LABS: Glucose - Point of Care 136 mg/dl (70-99)
[2025-03-30] MEDS: NOVOLOG FLEXPEN-LOW RESISTANCE SC (06:35)
[2025-03-30 08:15] LABS: Hematocrit 43.6 % (39.0-52.0); Hemoglobin 14.7 g/dL (13.0-18.0); Mean Corp Hgb Conc. 33.7 g/dL (33.0-37.0); Mean Corpuscular Volume 87.7 fL (80.0-94.0); Nucleated Red Blood Cells % 0 % (-); Platelet Count 203 10^3/uL (130-400); Red Cell Dist. Width 12.9 % (11.5-14.5)
[2025-03-30 08:24] LABS: APTT 71.4 Sec (23.4-35.0)
--- NOTE | 2025-03-30 08:31 | CON.CAR ---
Addendum entered and electronically signed by Lam Lam MD 03/30/25 12:29:
69-year-old man with history of WI in October of this year with peak troponin 310, treated with 2.75 mm Tip drug-eluting stent to mid circumflex with residual 60% stenosis. 48 hours ago began with symptoms of chest discomfort, presented on March
23 with troponin of 0.016, no acute EKG changes, additional chest discomfort this morning
PMH: Hypertension, hyperlipidemia, type 2 diabetes, CAD with WI October 2024 as documented above
Medications: Reviewed
Rest of history per Mary Max, as documented below
140/74, pulse 65, respiratory rate 18, afebrile, sats 97%, weight is 77.2 kg, head neck exam unremarkable, lungs are clear, regular rate and rhythm without obvious murmurs or gallops abdomen benign extremities without clubbing cyanosis or edema
distal pulses are intact
EKG: No acute ST segment changes
Chest x-ray: No active disease
Labs reviewed
Impression:
Chest discomfort with detectable troponin, concern regarding possible ACS
Recent large myocardial infarction in the circumflex distribution, EF 55%
Hypertension
Hyperlipidemia
Type 2 diabetes
Plan:
As per Mary below. Reviewed in detail and agreed unless otherwise specified.
His symptom complex with his detectable troponin is of concern. Options reviewed. We are agreed that best course of action is to proceed with cardiac catheterization to ascertain whether ACS is in fact the correct diagnosis.
Agree with addition of ezetimibe for LDL low 90s.
Will continue to optimize medical regimen.
Original Note:
Consultation
Consultation Request
Date/Time Consultation Requested: 03/29/2025 at 1658
Date/Time Consultation Performed: 03/30/2025 at 0736
Requesting Provider: Dr. Sandra Mariscal
Performing Provider: Dr. STEPHANIE Lam
Reason for Consultation: Chest pain, h/o CAD
Medical History
-
History of Present Illness:
Patient came to the ER yesterday with complaints of chest pain and was admitted with possible USA and cardiology is now consulted. Patient had NSTEMI with peak troponin 310 at [facility] in October and he was transferred to [facility] ER for
cardiac cath on 10/06/2024 resulting in a 2.75 mm Villanova YONG to the mid circumflex and a residual 60% mid to distal LAD lesion. Echo at that time showed preserved EF without significant valve disease. Patient was discharged to home on aspirin and
Plavix and patient reports compliance with his medical therapy and he successfully completed cardiac rehab. Patient also had an outpatient stress test on 10/13/2024 to evaluate for any ischemia in the LAD territory and there was none. Patient
reports having on and off substernal chest pain starting on Sunday night with symptoms lasting a few minutes at a time and then resolving and this happened at rest. When patient awoke the following morning he continued with chest discomfort
lasting for longer periods of time and he tried taking NTG SL x 2 at home without any improvement in his symptoms and so he came to the ER. In the ER patient was started on heparin gtt and was also eventually placed on Nitro-paste and reports pain
has improved. Overall pain feels identical in nature to what he experienced with his NSTEMI in October, but is much less intense. Initial troponin was 0.016 and follow-up troponin 0.013
[facility]:
Recent admission for NSTEMI and circumflex PCI 10/06/2024 until 10/07/2024
CAD
s/p NSTEMI with peak troponin 310 at [facility] 10/2024
s/p 2.75 mm Tip YONG to the mid circumflex and residual 60% mid to distal LAD lesion by cardiac cath 10/06/2024
No evidence of ischemia in LAD territory or elsewhere on outpatient stress test 10/13/2024
HTN
Hyperlipidemia
DM2
Incidental finding of BESS atherosclerotic ulcer on CT 10/04/24
Past Medical History
Past Medical History: Other (In HPI)
Past Surgical History: Cardiac (2.75 mm Villanova YONG to mid circumflex 10-29)
Social History
Tobacco: Non-Smoker
Alcohol: None
Drug: None
Personal:
Living: With Family
Family History
Family History: Reviewed & Not Pertinent (No FH of CAD)
Allergies / Home Medications
Allergy/AdvReac Type Severity Reaction Status Date / Time
No Known Allergies Allergy Unverified 03/29/25 17:18
�Medication �Instructions �Recorded �Confirmed �Type
aspirin 81 mg chewable tablet 81 mg PO DAILY #0 tabs 10/07/24 03/29/25 Rx
atorvastatin 80 mg tablet 80 mg PO DAILY High Cholesterol 03/29/25 03/29/25 History
clopidogrel 75 mg tablet 75 mg PO DAILY Blood Clot 03/29/25 03/29/25 History
Prevention/Tx
dapagliflozin propanediol 10 mg 10 mg PO DAILY Diabetes 03/29/25 03/29/25 History
tablet
glipizide 10 mg tablet 10 mg PO BID Diabetes 03/29/25 03/29/25 History
losartan 50 mg tablet 50 mg PO QPM Heart 03/29/25 03/29/25 History
Disease/Condition
sildenafil 100 mg tablet 100 mg PO DAILYPRN PRN ed 03/29/25 03/29/25 History
Review of Systems
-
History Source: Patient
All other systems: Negative unless noted
Physical Exam
Vital Signs
Temp Pulse Resp BP Pulse Ox
97.8 F 61 18 126/67 96
03/30/25 08:08 03/30/25 08:08 03/30/25 08:08 03/30/25 08:08 03/30/25 08:08
GEN: NAD, AAO x 3
HEENT: EOMI, MMM
LUNGS: RA. CTA B/L, no wheeze
CV: SR on telemetry. Reg, S1/S2, no murmur
ABD: ND
EXT: No edema B/L LE
NEURO: Gross non-focal
SKIN: No rash
Lab Results
03/30/25 07:53
Troponin I 0.016 ng/ml 03/29/25 11:52
initial troponin 0.016 and then trending down to 0.013
BMP 03/30/2025: Sodium 136, potassium 4.2, BUN 23, creatinine 0.9
HgbA1c pending, but was 10.1% at last check on 10/07/2024
Impression / Plan
-
PCP: David Amato, DO
Cardiology: Dr. Orr
Impression:
Admitted with chest pain and possible USA 03/29/2025
Recent admission for NSTEMI and circumflex PCI 10/06/2024 until 10/07/2024
Possible USA
CAD
s/p NSTEMI with peak troponin 310 at [facility] 10/2024
s/p 2.75 mm Tip YONG to the mid circumflex and residual 60% mid to distal LAD lesion by cardiac cath 10/06/2024
No evidence of ischemia in LAD territory or elsewhere on outpatient stress test 10/13/2024
HTN
Hyperlipidemia
DM2
Incidental finding of BESS atherosclerotic ulcer on CT 10/04/24
Echo 10/07/2024: EF 55%, normal RV size and function, no significant valve disease
Plan:
-Patient came to the ER yesterday with complaints of chest pain and was admitted with possible USA and cardiology is now consulted. Patient had NSTEMI with peak troponin 310 at [facility] in October and he was transferred to [facility] ER
for cardiac cath on 10/06/2024 resulting in a 2.75 mm Tip YONG to the mid circumflex and a residual 60% mid to distal LAD lesion. Echo at that time showed preserved EF without significant valve disease. Patient was discharged to home on aspirin and
Plavix and patient reports compliance with his medical therapy and he successfully completed cardiac rehab. Patient also had an outpatient stress test on 10/13/2024 to evaluate for any ischemia in the LAD territory and there was none. Patient
reports having on and off substernal chest pain starting on Sunday night with symptoms lasting a few minutes at a time and then resolving and this happened at rest. When patient awoke the following morning he continued with chest discomfort
lasting for longer periods of time and he tried taking NTG SL x 2 at home without any improvement in his symptoms and so he came to the ER. In the ER patient was started on heparin gtt and was also eventually placed on Nitro-paste and reports pain
has improved. Overall pain feels identical in nature to what he experienced with his NSTEMI in October, but is much less intense. Initial troponin was 0.016 and follow-up troponin 0.013
-ECG reviewed by me is SR without acute ST changes
-Initial troponin 0.016 and then trending down to 0.013
-Pain improved with heparin gtt and Nitro-paste
-Case reviewed with patient's outpatient kennel technician and plan is for cardiac cath later today. Plan reviewed by me with cardiology attending and the patient's RN
-Heparin gtt renewed by me on 03/30/2025 and platelet count is stable at 203
-Check echo prior to cardiac cath, order placed by me and I also called the echo lab to arrange for study to be done prior to cardiac cath
-Outpatient doses of aspirin and Plavix have been continued and patient reports compliance
-Outpatient dose of atorvastatin 80 mg daily has been continued. LDL is 93 and patient reports compliance with statin therapy. Will add Zetia 10 mg daily, orders placed by me.
-BP as high as 154/68 on admission, and then improving with time and his usual dose of losartan 50 mg daily.
-Patient was not previously taking beta-marta therapy due to bradycardia
-HgbA1c pending and was 10.1% at last check 10/2024. Hospitalist following and outpatient doses of Jardiance 10 mg daily and glipizide 10 mg BID are on hold and patient is being managed with corrective insulin
[2025-03-30 08:40] LABS: Troponin I 0.013 ng/ml
[2025-03-30] MEDS: LOW STRENGTH ASPIRIN 81 MG PO (08:46)
[2025-03-30] MEDS: COZAAR 50 MG PO (08:46)
[2025-03-30] MEDS: PLAVIX 75 MG PO (08:46)
[2025-03-30 08:51] LABS: Blood Urea Nitrogen 23 mg/dl (9-20); Calcium 9.1 mg/dl (8.4-10.2); Carbon Dioxide 27 mmol/L (22-30); Chloride 105 mmol/L (98-107); Estimated Creatinine Clearance 71 ml/min; Glucose 146 mg/dl (70-99); Potassium 4.2 mmol/L (3.5-5.1); Sodium 136 mmol/L (135-145); eGFR > 60.00
[2025-03-30 09:46] LABS: Glycohemoglobin (HgbA1c) 8.3 % (4.0-5.9)
--- NOTE | 2025-03-30 10:23 | W.PN.HOSP.TC ---
Addendum entered and electronically signed by Sandra Mariscal MD 03/30/25 14:50:
Attending�addendum:
I saw and evaluated the patient independently. I reviewed and discussed the resident�s note and agree with findings and plan as documented in the resident�s note.� patient seen and examined at bedside, denies any chest pain or shortness of breath,
no abdominal pain, no nausea, no vomiting, no diarrhea or constipation.
Physical�exam:
GENERAL : Patient is awake, alert, oriented x3
HEENT: Nonicteric sclerae, PERRLA, EOMI. Oropharynx clear. Moist mucous membranes. Conjunctivae appear well perfused.
CHEST: Chest wall is nontender.
HEART: Regular rate and rhythm without murmurs.
LUNGS: Clear to auscultation bilaterally.
ABDOMEN: Soft, positive bowel sounds, nontender, no organomegaly.
RECTAL: Deferred.
MUSCLES/EXTREMITIES: No abnormal range of motion, no swelling.SKIN: No rash, no excessive bruising, petechiae, or purpura.
NEUROLOGIC: Cranial nerves II-XII intact without motor/sensory deficit.
�
Assessment/plan:
Chest pain rule out acute coronary syndrome.
Negative troponin.
History of coronary artery disease.
Plan for cardiac cath today/echo
CODE STATUS: Full code
DVT prophylaxis: Heparin
Diet: N.p.o.
Disposition: Cath today.
�
Total time spent on today�s encounter was 51 minutes which included time spent in counseling the patient/family regarding diagnosis and treatment plan as listed above, goals of care, and symptom management. Case was discussed with nursing staff,
specialists, and care coordinators/case management. All labs and imaging personally reviewed by me. Remainder the time spent in detailed review of previous records, lab data, imaging, and other medical provider documentation.
Original Note:
Today's Communication/Plan
-
- Cardiology consulted
- Echo and heart cath today
Assessment / Plan
Assessment / Plan
#Acute coronary syndrome
- NSTEMI vs. Stable angina
- Cardiology consulted
- Plan for cardiac cath today with echo
- Heparin GGT, Nitropaste
- Continue Plavix and aspirin
- Continue statin, Zetia
Hypertension
- Continue losartan 50 mg
Type 2 diabetes
- Hold dapagliflozin, glipizide
- SSI
- Last A1c 10.1% in October 2024
#HLD
- Continue statin, Zetia
DVT PPx� heparin ggt
Full code
Anticipated Discharge: Within 24 hours
Subjective/Interval History
-
Date of Service: March 30, 2025
Patient seen this morning at the bedside. Patient is feeling well today, but still notes some mild midsternal chest pressure and tightness. Patient states that it feels similar to his NSTEMI 6 months ago but much less severe. Patient denies
headache, shortness of breath, heart palpitations, nausea, vomiting, swelling in his lower extremities. Patient notes that he is hungry however he is currently n.p.o. for his heart cath which is planned for today.
Objective Data
-
Labs:
Laboratory Results
03/30/25 03/30/25 03/30/25
02:55 07:53 14:30
WBC 5.4
Hgb 14.7
Hct 43.6
Plt Count 203
APTT 79.5 H 71.4 H Pending
Sodium 136
Potassium 4.2
Chloride 105
Carbon Dioxide 27
BUN 23 H
Creatinine 0.9
Glucose 146 H
Calcium 9.1
Vital Signs:
Vital Signs
Temp Pulse Resp BP Pulse Ox
97.8 F 61 18 126/67 96
03/30/25 08:08 03/30/25 08:08 03/30/25 08:08 03/30/25 08:08 03/30/25 08:08
I&O
03/29/25 03/30/25 03/31/25
06:59 06:59 06:59
Intake Total 240 / 240
Balance 240 / 240
Review of Systems
-
History Source: Patient
Constitutional: Reports No Symptoms
EENT: Reports No Symptoms Reported
Respiratory: Reports No Symptoms
Cardiac: Reports Chest Pain (Mild, midsternal chest pressure and discomfort)
Abdomen/GI: Reports No Symptoms
Breast: Reports No Symptoms
Genitourinary: Reports No Symptoms
Musculoskeletal: Reports No Symptoms
Skin: Reports No Symptoms
Neuro: Reports No Symptoms
Endocrine: Reports No Symptoms
Hematologic / Lymphatic: Reports No Symptoms
Allergy / Immunology: Reports No Symptoms
Physical Exam
-
General: Well Developed, Well Nourished and No Apparent Distress
HEENT: Normocephalic and Moist Mucous Membranes
Respiratory: Clear to Auscultation
Cardiac: Regular Rhythm and S1/S2
GI: Soft, Nontender and Nondistended
Musculoskeletal: No Edema
Skin: Warm and Dry
Neuro: Awake, Alert and Oriented
Psych: Calm
--- NOTE | 2025-03-30 10:33 | W.PN.UPDATE ---
Update Note
Progress Note Update
Patient with 1-2 out of 10 chest pressure, currently wearing 1 inch Nitropaste and heparin gtt running. Texting with patient's RN and they are unable to titrate nitro gtt on 4E so I have arranged for transfer to IVU after reviewing with IVU charge
RN. TT communication with 4E RN that patient can go directly from echo up to IVU 2244 and I also placed orders for nitro gtt.
--- NOTE | 2025-03-30 11:33 | PTCARENOTE ---
PTT resulted 71.4, Heparin gtt increased to 10.5 ml/hr per protocol. Next PTT ordered for 14:30. Pt reported chest discomfort described as 'slight pressure'. Notified cardiology PA, Mary Max. Orders for upgrade to IVU and initiation of nitro gtt.
Report called to Kinjal BELTRE and pt transferred to [id number] with all belongings, including his glasses, by this RN.
[2025-03-30] MEDS: NITROGLYCERIN PREMIX 250 IV (11:42)
--- NOTE | 2025-03-30 12:00 | PTCARENOTE ---
Received patient from 4E RN. Assessment completed and documented in shift assessment on worklist. Heparin gtt infusing through R AC IV. Placed R Hand IV for Nitro drip. Nitro drip started per cardiology, CP currently 05/16. Patient otherwise
comfortable. Now NPO awaiting cardiac cath procedure.
--- NOTE | 2025-03-30 12:20 | CM ---
spoke to pt in room, he is prev indep, lives with his in a 2 story home with 3 steps to enter. denies any dc planning needs or dme's. plan is for dc to home when medically stabe.
[2025-03-30 12:24] LABS: Glucose - Point of Care 237 mg/dl (70-99)
[2025-03-30] MEDS: NOVOLOG FLEXPEN-LOW RESISTANCE 2 UNITS SC (13:08)
[2025-03-30 13:55] LABS: ACT-LR - POC 269 Seconds (116-155)
--- NOTE | 2025-03-30 14:45 | PTCARENOTE ---
Patient s/p LHC through R Radial Artery. Radial Band in place.
--- NOTE | 2025-03-30 15:11 | ITS.CL.ANGIO ---
Roller Coaster Operator - Angioplasty
Angioplasty
Procedure Report:
LEFT HEART CATHETERIZATION
Date of Procedure: March 30, 2025
Procedures performed:
1: Coronary angiography
2: Left ventricular hemodynamic assessment
3: Physiologic lesion assessment of the left anterior descending artery
4: Percutaneous coronary invention of the left anterior descending artery with placement of a 2.75 x 15 mm Viola drug-eluting stent
Primary Care Provider: Vivien Hill D.O.
Primary General Maintenance Mechanic: Myself
INDICATION: The patient is a 69-year-old man with a past medical history of coronary artery disease status post non-STEMI and circumflex stenting in August who returns with several days of on and off chest pain concerning for unstable angina.
Troponins are negative. The patient enters the Roller Coaster Operator on a heparin and IV nitroglycerin drip with 2 out of 10 chest discomfort.
ACCESS: The patient was prepped and draped in usual sterile fashion. A 6 Danish sheath was placed in the right radial artery using the Seldinger over the wire technique.
HEMODYNAMIC FINDINGS (mmHg):
LV(s/d,EDP): 130/9, 14
Ao(s/d,m): 130/74, 97
ANGIOGRAPHIC FINDINGS:
Single-plane Left Ventriculography in LEVI Projection: Not done. Preserved EF by echo in the past.
Coronary Angiography:
Dominance: Right
Left Main: Normal
Left Anterior Descending: The LAD is a medium caliber vessel that appears normal proximally. There is a long area of mid myocardial bridging. This is followed by a smooth 60-70% mid to distal stenosis that also may have some element of bridging.
The distal vessel is angiographically normal with normal distal flow. This appears unchanged from prior angiography in August.
Ramus intermedius: There is a large caliber ramus intermedius branch which bifurcates into 2 major distal vessels. There is mild diffuse bifurcation disease that is nonobstructive. Distal vessels have normal flow.
Left Circumflex: The left circumflex is a medium caliber vessel that gives rise to 1 major bifurcating OM. The previously placed stent is widely patent with no significant in-stent restenosis.
Right Coronary: The right coronary artery is a large-caliber dominant vessel that gives rise to a medium caliber posterior descending artery and slightly larger posterior left ventricular branch system. These vessels have mild nonobstructive
luminal irregularities with no focal obstructive disease and normal flow in all distal vessels.
Physiologic lesion assessment of the left anterior descending artery: In light of his ongoing symptoms and the borderline angiographic appearance of the LAD lesion, I elected to perform physiologic lesion assessment. A 6 Danish XB 3.5 guiding
catheter was used to engage the left main. The patient was pretreated with oral aspirin and Plavix and unfractionated heparin was given. A Omni pressure wire was advanced with the transducer positioned in the distal LAD beyond the area of stenotic
disease. The IFR was serially measured at 0.84, 0.85, and 0.86 consistent with flow-limiting disease. In light of this I elected to perform intervention outlined below.
Percutaneous Coronary Intervention (PCI): The patient was pretreated with aspirin and Plavix as well as IV unfractionated heparin. The 6 Danish XB 3.5 guide was used for the intervention. A Hi-Torque floppy wire was advanced down the vessel and
predilation was performed with a 2.5 x 12 mm balloon. Next stenting was performed with a 2.75 x 15 Viola inflated to 18 malik for 60 seconds.
FINAL RESULT: 0% in-stent residual stenosis with an outstanding angiographic result and normal flow in all distal vessels.
Fluoroscopy Time (min): 9.8
Radiation Dose (mGy): 700
DAP (Gy.cm2): 42
Closure device: None. A TR band was applied for hemostasis at the right wrist.
Complications: None.
ASSESSMENT:
1: Successful PCI of the LAD with placement of a drug-eluting stent as described above. While this was clearly a flow-limiting lesion based on the physiologic assessment, I remain concerned that his symptoms may not be related to this lesion.
2: Widely patent previously placed circumflex stent with unchanged RCA nonobstructive disease.
CONCLUSIONS and RECOMMENDATIONS:
1: Routine post drug-eluting stent medical therapy and monitoring. The patient will receive dual antiplatelet therapy with aspirin and Plavix uninterrupted for a year and aspirin 81 mg daily indefinitely.
2: Start empiric PPI therapy with pantoprazole given the fact that I am concerned his symptoms may in fact be GI.
3: Routine medical therapy for hypertension and coronary artery disease.
Carlos Orr M.D.
[2025-03-30 15:13] LABS: ACT-LR - POC > 397 Seconds (116-155)
[2025-03-30] MEDS: LIPITOR 80 MG PO (17:07)
[2025-03-30 17:19] LABS: Glucose - Point of Care 90 mg/dl (70-99)
--- NOTE | 2025-03-30 18:00 | PTCARENOTE ---
Radial Band off, dressing placed. R Radial site CDI.
[2025-03-30 23:30] LABS: Glucose - Point of Care 151 mg/dl (70-99)
--- NOTE | 2025-03-31 01:57 | PTCARENOTE ---
Assumed care of patient at change of shift. Pt AAOx3, SB-NSR on tele, and VSS. Denies any chest discomfort or SOB. Right radial dressing C/D/I. Patient educated on activity restrictions, verbalized understanding. Reviewed POC w/ patient. Call meléndez
within reach.
[2025-03-31 04:47] VITALS: BP 139/70
[2025-03-31 04:59] VITALS: BMI 26.7
[2025-03-31 05:16] LABS: Hematocrit 41.0 % (39.0-52.0); Hemoglobin 14.0 g/dL (13.0-18.0); Mean Corp Hgb Conc. 34.1 g/dL (33.0-37.0); Mean Corpuscular Volume 87.6 fL (80.0-94.0); Platelet Count 193 10^3/uL (130-400); Red Cell Dist. Width 12.7 % (11.5-14.5)
[2025-03-31 05:25] LABS: Blood Urea Nitrogen 18 mg/dl (9-20); Calcium 8.8 mg/dl (8.4-10.2); Carbon Dioxide 26 mmol/L (22-30); Chloride 105 mmol/L (98-107); Estimated Creatinine Clearance 71 ml/min; Glucose 132 mg/dl (70-99); Potassium 4.1 mmol/L (3.5-5.1); Sodium 134 mmol/L (135-145); eGFR > 60.00
--- NOTE | 2025-03-31 07:26 | W.PN.HOSP.TC ---
Addendum entered and electronically signed by Sandra Mariscal MD 03/31/25 13:26:
Attending�addendum:
I saw and evaluated the patient independently. I reviewed and discussed the resident�s note and agree with findings and plan as documented in the resident�s note.� patient seen and examined at bedside, denies any chest pain or shortness of breath,
no abdominal pain, no nausea, no vomiting, no diarrhea or constipation.
Physical�exam:
GENERAL : Patient is awake, alert, oriented x3
HEENT: Nonicteric sclerae, PERRLA, EOMI. Oropharynx clear. Moist mucous membranes. Conjunctivae appear well perfused.
CHEST: Chest wall is nontender.
HEART: Regular rate and rhythm without murmurs.
LUNGS: Clear to auscultation bilaterally.
ABDOMEN: Soft, positive bowel sounds, nontender, no organomegaly.
RECTAL: Deferred.
MUSCLES/EXTREMITIES: No abnormal range of motion, no swelling.SKIN: No rash, no excessive bruising, petechiae, or purpura.
NEUROLOGIC: Cranial nerves II-XII intact without motor/sensory deficit.
�
Assessment/plan:
Unstable angina
Status post cardiac cath and stent
Patient feeling better after stent
Will be discharged home today
Cardiology recommendation appreciated
CODE STATUS: Full code
Disposition: Discharge home today.
�
Total time spent on today�s encounter was 51 minutes which included time spent in counseling the patient/family regarding diagnosis and treatment plan as listed above, goals of care, and symptom management. Case was discussed with nursing staff,
specialists, and care coordinators/case management. All labs and imaging personally reviewed by me. Remainder the time spent in detailed review of previous records, lab data, imaging, and other medical provider documentation.
Original Note:
Today's Communication/Plan
-
- Cardiology recommends continuing Plavix and aspirin uninterrupted for a year followed by aspirin daily indefinitely.
- Patient will follow-up with cardiac rehab upon discharge
- H2 marta added at discharge for possible GERD related chest pain
- Discharge today
Assessment / Plan
Assessment / Plan
#Acute coronary syndrome
- NSTEMI vs. Stable angina
- Cardiology following
- Echo completed 03/30/2025 showing ejection fraction 65 to 70%. Mild mitral annular calcification with trace mitral regurg. Normal aortic valve.
- Cardiac cath completed yesterday: Successful PCI of the LAD with placement of a drug-eluting stent. Widely patent previously placed circumflex stent with unchanged RCA nonobstructive disease.
- Cardiology recommends continuing Plavix and aspirin uninterrupted for a year followed by aspirin daily indefinitely.
- Cardiology added PPI for possible GERD related chest pain while inpatient
- Stopped pantoprazole, started H2 inhibitor for discharge to avoid possible interaction with Plavix
- Discontinued heparin GGT, Nitropaste
- Continue statin, started on Zetia during admission
- Discharge today
Hypertension
- Continue losartan 50 mg
Type 2 diabetes
- Hold dapagliflozin, glipizide. Resume upon discharge
- SSI
- Last A1c 10.1% in October 2024
#HLD
- Continue statin, Zetia
DVT PPx� heparin ggt
Full code
Anticipated Discharge: Today
Subjective/Interval History
-
Date of Service: March 31, 2025
Patient seen this morning, walking around his room. Patient states that he is feeling 'great' and would like to leave today. Patient denies any chest pain, heart palpitations, shortness of breath, nausea, vomiting, abdominal pain. Patient states
that his chest pain is completely resolved that he feels that he has returned to his baseline.
Objective Data
-
Labs:
Laboratory Results
03/31/25
04:57
WBC 4.8
Hgb 14.0
Hct 41.0
Plt Count 193
Sodium 134 L
Potassium 4.1
Chloride 105
Carbon Dioxide 26
BUN 18
Creatinine 0.9
Glucose 132 H
Calcium 8.8
Vital Signs:
Vital Signs
Temp Pulse Resp BP Pulse Ox
98.0 F 62 16 139/70 96
03/31/25 04:46 03/31/25 06:00 03/31/25 04:46 03/31/25 04:47 03/31/25 04:46
I&O
03/30/25 03/31/25 04/01/25
06:59 06:59 06:59
Intake Total 480 / 480
Balance 480 / 480
Review of Systems
-
History Source: Patient
Constitutional: Reports No Symptoms
EENT: Reports No Symptoms Reported
Respiratory: Reports No Symptoms
Cardiac: Reports No Symptoms
Abdomen/GI: Reports No Symptoms
Breast: Reports No Symptoms
Genitourinary: Reports No Symptoms
Musculoskeletal: Reports No Symptoms
Skin: Reports No Symptoms
Neuro: Reports No Symptoms
Endocrine: Reports No Symptoms
Hematologic / Lymphatic: Reports No Symptoms
Allergy / Immunology: Reports No Symptoms
Physical Exam
-
General: Well Developed, Well Nourished and Comfortable
HEENT: Normocephalic, Atraumatic and Moist Mucous Membranes
Respiratory: Clear to Auscultation
Cardiac: Regular Rhythm and S1/S2
GI: Soft, Nontender and Nondistended
Musculoskeletal: No Edema
Skin: Warm and Dry
Neuro: Awake, Alert and Oriented
Psych: Calm
[2025-03-31 07:31] LABS: Glucose - Point of Care 136 mg/dl (70-99)
[2025-03-31 08:05] VITALS: BP 122/63
[2025-03-31] MEDS: COZAAR 50 MG PO (08:22)
[2025-03-31] MEDS: ZETIA 10 MG PO (08:23)
[2025-03-31] MEDS: PROTONIX 40 MG PO (08:23)
[2025-03-31] MEDS: PLAVIX 75 MG PO (08:23)
[2025-03-31] MEDS: LOW STRENGTH ASPIRIN 81 MG PO (08:23)
[2025-03-31 10:54] VITALS: BP 120/67
--- NOTE | 2025-03-31 11:24 | W.PN.CARDCBS ---
Addendum entered and electronically signed by Garrick Colvin DO 03/31/25 14:48:
I saw and examined the patient.
The Advisory Services Associate's note was reviewed and I agree with the note.
Comment:
Plan:
Reviewed cardiac catheterization and discussed PCI to LAD
Continue dual antiplatelet therapy with aspirin and Plavix.
Continue antihyperlipidemia treatment including Lipitor and Zetia
Continue Cozaar
Cardiac rehab recommended and reviewed
Outpatient cardiac follow-up arranged
Stable for discharge from a cardiac standpoint.
Original Note:
Today's Communication / Plan
-
Doing well status post LAD stent
Continue aspirin, Plavix
Continue Lipitor, Zetia
Continue Cozaar
Cardiac rehab
Outpatient cardiac follow-up arranged
Okay for discharge
Impression / Plan
-
PCP: David Amato DO
Cardiology: Dr. Orr
Impression:
CP
USA s/p LAD PCI 03/30/25
Recent admission for NSTEMI and circumflex PCI 10/06/2024 until 10/07/2024
Possible USA
CAD
s/p NSTEMI with peak troponin 310 at [facility] 10/2024
s/p 2.75 mm [place] YONG to the mid circumflex and residual 60% mid to distal LAD lesion by cardiac cath 10/06/2024
No evidence of ischemia in LAD territory or elsewhere on outpatient stress test 10/13/2024
HTN
Hyperlipidemia
DM2
Incidental finding of BESS atherosclerotic ulcer on CT 10/04/24
Echo 10/07/2024: EF 55%, normal RV size and function, no significant valve disease
ECHO 03/30/25: EF 65 to 70%, mild concentric LVH, mild MAC, trace MR
Plan:
- Patient presented with chest pain and symptoms of unstable angina in setting of recent NSTEMI resulting in circumflex PCI 10/2024
- Underwent cardiac catheterization 03/30/2025 resulting in LAD PCI
- Feeling well overnight
- Troponins remained within normal range
- Echocardiogram with EF preserved as above
- Continue aspirin, Plavix
- Continue high intensity statin therapy. Christiantia added this admission
- Continue outpatient losartan. Not on beta-marta due to history of bradycardia
- Right wrist site clean dry and intact
- Cardiac rehab
- Arranged for outpatient cardiac follow-up with [facility]
- Hemoglobin A1c improving from October (10.1 down to 8.3%). Continue Jardiance and glipizide. Management through PCP as outpatient
- Okay for discharge to home today
- Discussed with nursing
PREADMIT DATA:
-Patient came to the ER yesterday with complaints of chest pain and was admitted with possible USA and cardiology is now consulted. Patient had NSTEMI with peak troponin 310 at [facility] in October and he was transferred to [facility] ER
for cardiac cath on 10/06/2024 resulting in a 2.75 mm [place] YONG to the mid circumflex and a residual 60% mid to distal LAD lesion. Echo at that time showed preserved EF without significant valve disease. Patient was discharged to home on aspirin and
Plavix and patient reports compliance with his medical therapy and he successfully completed cardiac rehab. Patient also had an outpatient stress test on 10/13/2024 to evaluate for any ischemia in the LAD territory and there was none. Patient
reports having on and off substernal chest pain starting on Sunday night with symptoms lasting a few minutes at a time and then resolving and this happened at rest. When patient awoke the following morning he continued with chest discomfort
lasting for longer periods of time and he tried taking NTG SL x 2 at home without any improvement in his symptoms and so he came to the ER. In the ER patient was started on heparin gtt and was also eventually placed on Nitro-paste and reports pain
has improved. Overall pain feels identical in nature to what he experienced with his NSTEMI in October, but is much less intense. Initial troponin was 0.016 and follow-up troponin 0.013
Progress Note - Account Services Analyst
Subjective
Date of Service: March 31, 2025
No issues overnight. Patient reports feeling well. Eager for discharge
Objective
Labs:
03/31/25 04:57
03/31/25 04:57
Labs
Hgb 14.0 g/dL (13.0-18.0) 03/31/25 04:57
Hct 41.0 % (39.0-52.0) 03/31/25 04:57
Plt Count 193 10^3/uL (130-400) 03/31/25 04:57
APTT Cancelled 03/30/25 14:30
Sodium 134 mmol/L (135-145) L 03/31/25 04:57
Potassium 4.1 mmol/L (3.5-5.1) 03/31/25 04:57
BUN 18 mg/dl (9-20) 03/31/25 04:57
Creatinine 0.9 mg/dL (0.7-1.3) 03/31/25 04:57
Glucose 132 mg/dl (70-99) H 03/31/25 04:57
Troponins
03/29/25 03/30/25
11: 07:53
Troponin I 0.016 0.013
Vital Signs and I&O:
Vital Signs
Temp Pulse Resp BP Pulse Ox
98.1 F 61 17 122/63 97
03/31/25 10:53 03/31/25 10:53 03/31/25 10:53 03/31/25 08:22 03/31/25 10:53
Vital Signs
Temp Pulse Resp BP Pulse Ox
98.1 F 61 17 122/63 97
03/31/25 10:53 03/31/25 10:53 03/31/25 10:53 03/31/25 08:22 03/31/25 10:53
Intake & Output
11/23/03/30/25 03/31/25 04/01/25
07:59 07:59 07:59 07:59
Intake Total 240 / 240 240 / 240
Balance 240 / 240 240 / 240
Physical Exam
Physical Exam
GEN: No distress, awake, alert, oriented x3
HEENT: supple, anicteric, mmm, EOMI
LUNGS: CTA bilaterally, no wheezes/rales
CV: Reg, S1/S2, no murmur
ABD: soft, BS+, NT/ND
EXT: No cyanosis, clubbing, edema
NEURO: Gross non-focal
SKIN: Warm, pink, dry. No rash. Right wrist site clean dry and intact
--- NOTE | 2025-03-31 11:28 | PTCARENOTE ---
received patient this am sitting in bed eating breakfast. monitor shows NSR, VSS. right radial dsg. D/I, distal pulse palpable. patient hoping to be discharged to home today.
--- NOTE | 2025-03-31 11:47 | W.DCSUMMARY ---
Addendum entered and electronically signed by Sandra Mariscal MD 03/31/25 15:50:
Attending�addendum:
I saw and evaluated the patient independently. I reviewed and discussed the resident�s note and agree with findings and plan as documented in the resident�s note.� patient seen and examined at bedside, denies any chest pain or shortness of breath,
no abdominal pain, no nausea, no vomiting, no diarrhea or constipation.
Physical�exam:
GENERAL : Patient is awake, alert, oriented x3
HEENT: Nonicteric sclerae, PERRLA, EOMI. Oropharynx clear. Moist mucous membranes. Conjunctivae appear well perfused.
CHEST: Chest wall is nontender.
HEART: Regular rate and rhythm without murmurs.
LUNGS: Clear to auscultation bilaterally.
ABDOMEN: Soft, positive bowel sounds, nontender, no organomegaly.
RECTAL: Deferred.
MUSCLES/EXTREMITIES: No abnormal range of motion, no swelling.SKIN: No rash, no excessive bruising, petechiae, or purpura.
NEUROLOGIC: Cranial nerves II-XII intact without motor/sensory deficit.
�
Assessment/plan:
Unstable angina
Status post cardiac cath and stent
Patient feeling better after stent
Will be discharged home today
Cardiology recommendation appreciated
CODE STATUS: Full code
Disposition: Discharge home today.
�
Total time spent on today�s encounter was 51 minutes which included time spent in counseling the patient/family regarding diagnosis and treatment plan as listed above, goals of care, and symptom management. Case was discussed with nursing staff,
specialists, and care coordinators/case management. All labs and imaging personally reviewed by me. Remainder the time spent in detailed review of previous records, lab data, imaging, and other medical provider documentation.
Original Note:
Documented by User: Neetu Schwab DO, Resident 03/31/25 14:43
Discharge Summary
Discharge Data
Date of Admission: 03/29/25
Date of Discharge: 03/31/25
-
Pending Results: No
Hospital Course
Primary diagnosis: Unstable angina
Secondary diagnosis: Coronary artery disease, hypertension
Hospital course:
Patient is a 69-year-old man with PMH significant for HTN, HLD, CAD, T2DM, NSTEMI s/p circumflex stenting who presented to [facility] with chest pain. Patient started to experience the chest pain at home and took 2 nitroglycerin tabs with minimal
improvement in chest pain. 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 In the ED, lab work was unremarkable. Chest x-ray was negative. EKG showed sinus bradycardia. Initial troponin was 0.016, down trended to
0.013. Patient given nitro manage started on heparin ggt with moderate improvement of symptoms. Cardiology consulted. Patient admitted for chest pain, to rule out acute coronary syndrome.
Patient had echo and heart cath completed on 03/30/2025. Echo revealed EF of 65 to 70%. During catheterization, patient had successful PCI of the LAD with placement of a drug-eluting stent. The widely patent previously placed circumflex stent
with unchanged RCA nonobstructive disease was also visualized. Heparin discontinued. Patient doing well s/p LAD stent and is chest pain completely resolved. Patient cleared for discharge home with cardiac rehab and outpatient cardiology follow-up.
Imaging:
03/29/2025 chest x-ray
IMPRESSION:
No acute cardiopulmonary process.
03/30/2025 echo
SUMMARY
1. Mild concentric left ventricular hypertrophy with preserved systolic function, ejection fraction 65-70%.
2. Mild mitral annular calcification with trace mitral regurgitation and normal left atrium.
3. Normal aortic valve.
4. Normal right heart with normal pulmonary artery systolic pressure.
5. In October 2024 the EF was 55-60%. There was trace mitral regurgitation, the aortic valve was normal and the right heart was normal.
Discharge Plan
-
Patient Disposition: Home (Routine Discharge)
Discharge Diagnosis/Procedures: Angioplasty and stent to Left Anterior Descending artery
Condition: Good
Diet: Low Fat and Low Cholesterol
Activity: No restrictions and As tolerated
Driving Restrictions: As prior to admission
Other Services: Cardiac Rehab
Activity Restrictions/Additional Instructions:
Please call [facility] [place] [facility] to get scheduled. P: [phone]
Please follow up with your PCP within 4-6 weeks.
Please follow up with cardiology as planned on 04/16/25
Stand Alone Forms: DC Instructions- Cath/EP Lab
Referrals:
Vivien Hill DO [Family Provider, Family Practice]
Carlos Orr MD [Active, Cardiology] - 04/16/25 10:30 am
Referral Note: Please call with questions.
Prescriptions:
New
ezetimibe 10 mg Tablet
10 mg PO DAILY 30 Days Qty: 30 0RF
famotidine 20 mg tablet
20 mg PO BID Qty: 60 0RF
Continued
aspirin 81 mg Tablet,Chewable
81 mg PO DAILY Qty: 0 0RF
sildenafil 100 mg Tablet
100 mg PO DAILYPRN PRN (Reason: ed)
losartan 50 mg tablet
50 mg PO QPM
atorvastatin 80 mg tablet
80 mg PO DAILY
glipizide 10 mg tablet
10 mg PO BID
clopidogrel 75 mg tablet
75 mg PO DAILY
dapagliflozin propanediol 10 mg tablet
10 mg PO DAILY
Discharge Orders:
Discharge Patient (As Directed); Ordered 03/31/25
Ordered By: Neetu Schwab
Care Plan Goals
Care Plan Goals:
Problem: Readiness for enhanced knowledge related to diagnosis and treatment plan
Goal: Understand your diagnosis and treatment plan needs, including medications if applicable.
Instructions: Know your diagnosis, underlying causes and treatment plan options, including medications if applicable. Consult with your health care team to learn about your diagnosis and treatment plan, including medications if applicable.
Discharge Date and Time
Discharge Date/Time: 03/31/25 14:20
Print Language: DANISH

Documented by User: Sandra Mariscal MD 03/31/25 15:50
Discharge Summary
Discharge Data
Date of Admission: 03/29/25
Date of Discharge: 03/31/25
Discharge Plan
-
Patient Disposition: Home (Routine Discharge)
Discharge Diagnosis/Procedures: Angioplasty and stent to Left Anterior Descending artery
Condition: Good
Diet: Low Fat and Low Cholesterol
Activity: No restrictions and As tolerated
Driving Restrictions: As prior to admission
Other Services: Cardiac Rehab
Activity Restrictions/Additional Instructions:
Please call [facility] [place] [facility] to get scheduled. P: [phone]
Please follow up with your PCP within 4-6 weeks.
Please follow up with cardiology as planned on 04/16/25
Stand Alone Forms: DC Instructions- Cath/EP Lab
Referrals:
Vivien Hill DO [Family Provider, Family Practice]
Carlos Orr MD [Active, Cardiology] - 04/16/25 10:30 am
Referral Note: Please call with questions.
Prescriptions:
New
ezetimibe 10 mg Tablet
10 mg PO DAILY 30 Days Qty: 30 0RF
famotidine 20 mg tablet
20 mg PO BID Qty: 60 0RF
Continued
aspirin 81 mg Tablet,Chewable
81 mg PO DAILY Qty: 0 0RF
sildenafil 100 mg Tablet
100 mg PO DAILYPRN PRN (Reason: ed)
losartan 50 mg tablet
50 mg PO QPM
atorvastatin 80 mg tablet
80 mg PO DAILY
glipizide 10 mg tablet
10 mg PO BID
clopidogrel 75 mg tablet
75 mg PO DAILY
dapagliflozin propanediol 10 mg tablet
10 mg PO DAILY
Discharge Orders:
Discharge Patient (As Directed); Ordered 03/31/25
Ordered By: Neetu Schwab
Care Plan Goals
Care Plan Goals:
Problem: Readiness for enhanced knowledge related to diagnosis and treatment plan
Goal: Understand your diagnosis and treatment plan needs, including medications if applicable.
Instructions: Know your diagnosis, underlying causes and treatment plan options, including medications if applicable. Consult with your health care team to learn about your diagnosis and treatment plan, including medications if applicable.
Discharge Date and Time
Discharge Date/Time: 03/31/25 14:20
Print Language: DANISH
[2025-03-31 12:22] LABS: Glucose - Point of Care 160 mg/dl (70-99)
--- NOTE | 2025-03-31 12:53 | PTCARENOTE ---
D/C instructions given to patient, verbalizes understanding. INT x 2 D/C'd, telemetry D/C'd, personal belongings packed and sent home with patient. patient waiting for his to arrive.
== END 2025-03-31 14:20 | disposition home or self-care (01) | DRG 322 ==
LOC: IVU 15:27
PROVIDERS: Internal Medicine Interventional Cardiology; Nurse Practitioner; Student in an Organized Health Care Education/Training Program; ADMITTING PHYSICIAN Internal Medicine; ATTENDING PHYSICIAN General Practice; EMERGENCY PHYSICIAN Emergency Medicine; FAMILY PHYSICIAN Family Medicine; OTHER PHYSICIAN Internal Medicine Cardiovascular Disease
PROC: B2111ZZ Fluoroscopy of Multiple Coronary Arteries using Low Osmolar Contrast (ICD-10-PCS; 2025-03-30)
PROC: 027034Z Dilation of Coronary Artery, One Artery with Drug-eluting Intraluminal Device, Percutaneous Approach (ICD-10-PCS; 2025-03-30)
PROC: 4A023N7 Measurement of Cardiac Sampling and Pressure, Left Heart, Percutaneous Approach (ICD-10-PCS; 2025-03-30)
PROC: 4A033BC Measurement of Arterial Pressure, Coronary, Percutaneous Approach (ICD-10-PCS; 2025-03-30)
DX: I25.110 Atherosclerotic heart disease of native coronary artery with unstable angina pectoris (principal); E78.00 Pure hypercholesterolemia, unspecified; E11.65 Type 2 diabetes mellitus with hyperglycemia; I10 Essential (primary) hypertension; I25.2 Old myocardial infarction; Z79.02 Long term (current) use of antithrombotics/antiplatelets; Z79.82 Long term (current) use of aspirin; Z79.84 Long term (current) use of oral hypoglycemic drugs; Z79.899 Other long term (current) drug therapy; Z87.891 Personal history of nicotine dependence; Z95.5 Presence of coronary angioplasty implant and graft
CPT/HCPCS: 71046; 80048; 80053; 82962; 83036; 84484; 85025; 85027; 85347; 85730; 93005; 93306; 93458; 93799; 96374; 99291; C1725; C1769; C1874; C1894; C9600; Q9967